=== PATIENT | female | born 1960 | race Caucasian/White ===

== ENCOUNTER → 2017-05-13 | Outpatient (CLI) | payer OTHER | END | disposition home or self-care (01) | LOC: RAD 15:50 | DX: J40 Bronchitis, not specified as acute or chronic (principal) ==

== ENCOUNTER 2017-09-14 22:55 | Inpatient (IN) | payer OTHER ==
[~2017-09-14] VITALS: Ht 165.1 cm; Wt 103.5 kg
--- NOTE | ~2017-09-14 | CON ---
[place], [place] REPORT OF CONSULTATION NAME: NICKI MCKAY UNIT #: [id number] ROOM: 505 [facility] [birth year] DOS: 09/15/2017 CARDIOLOGY CONSULTATION HISTORY OF PRESENT ILLNESS: The patient is a 57-year-old female. I have taken care of this patient in the past and the patient did ask me to continue seeing her and follow the patient. The patient came to the Emergency Room Department due to abscess and also chest discomfort on the left side. The patient noticed a boil on her left shoulder 2 days ago. The patient has discomfort on a 0-10 scale of 5. The pericardial chest tube is in the left chest has discomfort. The patient is concerned for pneumonia. The patient has a previous history of myocardial infarction and chronic obstructive airway disease. No history of blood clots. Chest x-ray unremarkable. CT scan of the chest, no pulmonary emboli, and questionable consolidation left side; chest x-ray did not reveal it. The patient has a history of coronary stent in the past. Denies any drug or tobacco use or alcohol use. ALLERGIES: None. PHYSICAL EXAMINATION: VITAL SIGNS: Blood pressure 118/69, heart rate is 80. NECK: Supple. No jugular venous distention. No carotid bruits were heard. LUNGS: No rales heard. No wheezing heard. HEART: S1, S2 regular. No gallops. ABDOMEN: Soft. SKIN: Color is good, not diaphoretic. RECTAL: Deferred, unrelated. GENITAL: Deferred, unrelated. BREASTS: Deferred, unrelated. NEUROLOGICAL: No focal neurological deficit noted. VASCULAR: Pulses are good. LABORATORY DATA: Troponin is unremarkable. Renal function is good. Hemoglobin is 15.1. IMPRESSION: 1. Angina, crescendo type. 2. Coronary artery disease, coronary stenting. PLAN: Lexiscan with Cardiolite to evaluate for ischemic heart disease. If it is abnormal, coronary arteriography, possible revascularization. Options, procedure, complications, morbidity, mortality, risk is explained. Radial option for an Martínez test is unremarkable; on the right, no problem. If the stress is negative, we will continue to work with medical and conservative management. [place], [place] REPORT OF CONSULTATION NAME: NICKI MCKAY UNIT #: [id number] ROOM: [facility] DOCTOR: JOEL RAMOS MD, FACC BIRTHDATE: [birth year] JOEL RAMOS MD CM:CONSTR:REPORT OF CONSULTATION 1245 09/30/17 0747 interface
--- NOTE | ~2017-09-14 | ST ---
[place], [place] EXERCISE STRESS TEST REPORT NAME: NICKI MCKAY UNIT #: [id number] ROOM: [facility] DOCTOR: RICHARD BROWN [facility],JOEL BIRTHDATE: [birth year] DOS: 09/15/2017 SUBJECTIVE: The patient received Lexiscan 0.4 mg over 10 seconds. Heart rate is 106. The patient has a bundle branch block, difficult to comment on the EKG changes. No complication noted. Isotope was injected. Myocardial perfusion scan to follow. JOEL RAMOS MD CM:STRESS:EXERCISE STRESS TEST REPORT [id number] JOEL RAMOS MD [facility]
[2017-09-14 23:13] VITALS: BP 129/76
[2017-09-14 23:38] LABS: BASO # 0.1 10*3/uL (0.0-0.1); BASO % 0.7 % (0.0-1.0); EOS % 0.4 % (1.0-4.0); HEMATOCRIT 47.9 % (37.0-47.0); HEMOGLOBIN 15.1 g/dl (12.0-16.0); LYMPH # 0.9 10*3/uL (1.3-4.4); LYMPH % 12.6 % (27.0-41.0); MEAN CELL VOLUME 91.1 fl (81.0-99.0); MEAN CORPUSCULAR HGB 28.7 pg (27.0-31.0); MEAN CORPUSCULAR HGB CONC 31.5 g/dl (33.0-37.0); MEAN PLATELET VOLUME 11.5 fl (9.6-12.3); MONO # 0.7 10*3/uL (0.1-1.0); MONO % 10.7 % (3.0-9.0); NEUT # 5.1 10*3/uL (2.3-7.9); NEUT % 75.3 % (47.0-73.0); PLATELET COUNT AUTOMATED 188 10*3/uL (130-400); RED BLOOD COUNT 5.26 10*6/uL (4.10-5.10); RED CELL DISTRI WIDTH 15.1 % (0-14.5); WHITE BLOOD COUNT 6.8 10*3/uL (4.8-10.8)
[2017-09-14 23:48] LABS: ACT PARTIAL THROMBO TIME 26.1 SECONDS (20.8-31.5); INTERNATIONAL NORM RATIO 1.1 (2.0-3.5)
[2017-09-14 23:54] LABS: ALBUMIN 3.5 gm/dl (3.1-4.5); ALKALINE PHOSPHATASE 90 U/L (45-117); BUN 9 mg/dl (7-24); CHLORIDE 104 mmol/L (98-107); CREATININE 0.64 mg/dL (0.55-1.02); POTASSIUM 3.6 mmol/L (3.5-5.1); SGOT/AST 29 IU/L (3-35); SODIUM 140 mmol/L (136-145); TOTAL PROTEIN 7.8 gm/dL (6.4-8.2)
[2017-09-14 23:55] LABS: LIPASE 86 U/L (73-393); SGPT/ALT 33 U/L (12-78); TROPONIN I 0.028 ng/ml (<0.045)
[2017-09-15] VITALS (7 sets, daily range): BP systolic 104–156; BP diastolic 69–87
[2017-09-15] MEDS ORDERED: ASPIRIN ADULT L81 M1 PO (01:59)
[2017-09-15 05:50] LABS: BUN 7 mg/dl (7-24); CHLORIDE 105 mmol/L (98-107); CHOLESTEROL 230 mg/dL (<200); CREATININE 0.61 mg/dL (0.55-1.02); HDL CHOLESTEROL 46 mg/dl (40-60); LDL CHOLESTEROL 172 mg/dL (9-159); POTASSIUM 3.8 mmol/L (3.5-5.1); SODIUM 142 mmol/L (136-145); TRIGLYCERIDES 62 mg/dl (<150); TROPONIN I 0.035 ng/ml (<0.045); VLDL CHOLESTEROL 12 mg/dL (6-40)
[2017-09-15 06:13] LABS: BASO % 0.8 % (0.0-1.0); EOS % 0.4 % (1.0-4.0); HEMATOCRIT 48.5 % (37.0-47.0); HEMOGLOBIN 14.7 g/dl (12.0-16.0); LYMPH # 0.8 10*3/uL (1.3-4.4); MEAN CORPUSCULAR HGB 28.5 pg (27.0-31.0); MEAN CORPUSCULAR HGB CONC 30.3 g/dl (33.0-37.0); MEAN PLATELET VOLUME 11.4 fl (9.6-12.3); MONO # 0.4 10*3/uL (0.1-1.0); MONO % 7.1 % (3.0-9.0); NEUT # 3.7 10*3/uL (2.3-7.9); NEUT % 75.5 % (47.0-73.0); PLATELET COUNT AUTOMATED 174 10*3/uL (130-400); RED BLOOD COUNT 5.16 10*6/uL (4.10-5.10); RED CELL DISTRI WIDTH 15.3 % (0-14.5); WHITE BLOOD COUNT 4.9 10*3/uL (4.8-10.8)
[2017-09-15 07:27] LABS: VITAMIN D, 25-HYDROXY 13.9 ng/mL (30-100)
[2017-09-15 09:54] LABS: BILIRUBIN NEGATIVE (NEGATIVE); BLOOD 1+ (NEGATIVE); CLARITY CLEAR (CLEAR); COLOR YELLOW (YELLOW); GLUCOSE NEGATIVE (NEGATIVE); KETONE NEGATIVE (NEGATIVE); LEUKO ESTERASE NEGATIVE (NEGATIVE); NITRITE NEGATIVE (NEGATIVE); PH 5.5 (5.0-9.0); UROBILINOGEN 0.2 E.U./dl (0.2-1.0)
[2017-09-15 10:05] LABS: BACTERIA 1+
[2017-09-16] VITALS: BP 156/86
[2017-09-16] MEDS ORDERED: Vitamin D PO (06:05)
[2017-09-16 06:24] LABS: BASO # 0.1 10*3/uL (0.0-0.1); BASO % 0.8 % (0.0-1.0); EOS # 0.1 10*3/uL (0.0-0.4); EOS % 1.4 % (1.0-4.0); HEMATOCRIT 47.3 % (37.0-47.0); HEMOGLOBIN 14.3 g/dl (12.0-16.0); LYMPH # 1.1 10*3/uL (1.3-4.4); LYMPH % 18.6 % (27.0-41.0); MEAN CELL VOLUME 93.8 fl (81.0-99.0); MEAN CORPUSCULAR HGB 28.4 pg (27.0-31.0); MEAN CORPUSCULAR HGB CONC 30.2 g/dl (33.0-37.0); MEAN PLATELET VOLUME 11.3 fl (9.6-12.3); MONO # 0.6 10*3/uL (0.1-1.0); MONO % 10.2 % (3.0-9.0); NEUT # 4.1 10*3/uL (2.3-7.9); NEUT % 68.7 % (47.0-73.0); PLATELET COUNT AUTOMATED 172 10*3/uL (130-400); RED BLOOD COUNT 5.04 10*6/uL (4.10-5.10); RED CELL DISTRI WIDTH 15.2 % (0-14.5); WHITE BLOOD COUNT 5.9 10*3/uL (4.8-10.8)
[2017-09-16 06:34] LABS: BUN 6 mg/dl (7-24); CHLORIDE 104 mmol/L (98-107); CREATININE 0.56 mg/dL (0.55-1.02); SODIUM 139 mmol/L (136-145)
[2017-09-16] MEDS ORDERED: LEVAQUIN750 M1 PO (07:34)
[2017-09-16] MEDS ORDERED: ATORVASTATIN CA20 M1 PO (07:34)
== END 2017-09-16 07:40 | disposition short-term general hospital (02) | DRG 871 ==
LOC: ED 22:55 → 5E 09-15 00:30 → EDHOLD 09-15 00:30 → 5E 09-15 00:48
PROVIDERS: Internal Medicine Hospice and Palliative Medicine; Internal Medicine Nephrology; Physician Assistant
PROC: 3E073KZ Introduction of Other Diagnostic Substance into Coronary Artery, Percutaneous Approach (ICD-10-PCS; principal; 2017-09-15)
PROC: 4A02XM4 Measurement of Cardiac Total Activity, External Approach (ICD-10-PCS; principal; 2017-09-15)
DX: A41.9 Sepsis, unspecified organism (principal); J18.1 Lobar pneumonia, unspecified organism; L02.91 Cutaneous abscess, unspecified; I25.110 Atherosclerotic heart disease of native coronary artery with unstable angina pectoris; I44.7 Left bundle-branch block, unspecified; D72.810 Lymphocytopenia; R73.9 Hyperglycemia, unspecified; E66.9 Obesity, unspecified; E78.2 Mixed hyperlipidemia; Z72.0 Tobacco use; Z71.6 Tobacco abuse counseling; Z83.3 Family history of diabetes mellitus; Z82.49 Family history of ischemic heart disease and other diseases of the circulatory system; I25.2 Old myocardial infarction; Z98.61 Coronary angioplasty status; Z79.82 Long term (current) use of aspirin; Z68.37 Body mass index [BMI] 37.0-37.9, adult

== ENCOUNTER → 2017-10-10 | Outpatient (CLI) | payer OTHER ==
[~2017-10-10] MED LIST: ASPIRIN ADULT L81 M1 PO; ATORVASTATIN CA20 M1 PO; LEVAQUIN750 M1 PO; Vitamin D PO
== END | disposition home or self-care (01) ==
LOC: CP 10:18
DX: I25.5 Ischemic cardiomyopathy (principal)

== ENCOUNTER → 2017-12-27 | Outpatient (CLI) | payer OTHER | END | disposition home or self-care (01) | LOC: CARD 12:00 | DX: I25.5 Ischemic cardiomyopathy (principal) ==

== ENCOUNTER → 2018-02-06 | Outpatient (CLI) | payer OTHER ==
[2018-02-06 09:24] LABS: CHLORIDE 100 mmol/L (98-107); POTASSIUM 4.1 mmol/L (3.5-5.1); SODIUM 136 mmol/L (136-145)
[2018-02-06 09:33] LABS: BUN 13 mg/dl (7-24); CREATININE 0.88 mg/dL (0.55-1.02)
== END | disposition home or self-care (01) ==
LOC: LAB 07:55
PROVIDERS: Internal Medicine Cardiovascular Disease
DX: I25.5 Ischemic cardiomyopathy (principal)

== ENCOUNTER → 2018-08-22 | Outpatient (CLI) | payer OTHER | END | disposition home or self-care (01) | LOC: RAD 16:23 | DX: M51.36 Other intervertebral disc degeneration, lumbar region (principal); M47.816 Spondylosis without myelopathy or radiculopathy, lumbar region; J44.9 Chronic obstructive pulmonary disease, unspecified; I51.7 Cardiomegaly ==

== ENCOUNTER 2020-12-12 11:19 | Emergency (ER) | payer SELFPAY ==
[~2020-12-12] VITALS: Ht 165.1 cm; Wt 108.9 kg
== END 2020-12-12 14:00 | disposition home or self-care (01) ==
LOC: ED 11:19
DX: S02.2XXA Fracture of nasal bones, initial encounter for closed fracture (principal); S80.02XA Contusion of left knee, initial encounter; M79.609 Pain in unspecified limb; Z79.82 Long term (current) use of aspirin; W01.0XXA Fall on same level from slipping, tripping and stumbling without subsequent striking against object, initial encounter; Y93.89 Activity, other specified; Y92.89 Other specified places as the place of occurrence of the external cause; Y99.8 Other external cause status

== ENCOUNTER → 2023-02-09 | Outpatient (CLI) | payer OTHER | END | disposition home or self-care (01) | LOC: CARD 00:13 | PROVIDERS: ATTEND Internal Medicine Cardiovascular Disease | DX: I25.5 Ischemic cardiomyopathy (principal); I50.22 Chronic systolic (congestive) heart failure ==

== ENCOUNTER → 2023-03-07 | Outpatient (CLI) | payer OTHER ==
[2023-03-07 13:17] LABS: BUN 11 mg/dl (9-23); CHLORIDE 101 mmol/L (98-107); POTASSIUM 4.1 mmol/L (3.4-5.1)
== END | disposition home or self-care (01) ==
LOC: LAB 11:31
PROVIDERS: ATTEND Registered Nurse
DX: I50.22 Chronic systolic (congestive) heart failure (principal); I25.5 Ischemic cardiomyopathy

== ENCOUNTER → 2023-08-03 | Outpatient (CLI) | payer OTHER | END | disposition home or self-care (01) | LOC: US 07-28 02:29 | PROVIDERS: ATTEND Nurse Practitioner Women's Health | DX: N85.8 Other specified noninflammatory disorders of uterus (principal); N93.9 Abnormal uterine and vaginal bleeding, unspecified; N32.89 Other specified disorders of bladder ==

== ENCOUNTER → 2023-12-21 | Outpatient (CLI) | payer OTHER | END | disposition home or self-care (01) | LOC: RAD 14:03 → LAB 14:03 | PROVIDERS: ATTEND Nurse Practitioner | DX: M47.817 Spondylosis without myelopathy or radiculopathy, lumbosacral region (principal); M54.9 Dorsalgia, unspecified ==